=== PATIENT | female | born 1995 ===

== ENCOUNTER 2017-04-18 11:14 | Emergency (ER) | payer OTHER ==
[2017-04-18 11:32] VITALS: BP 107/62
--- NOTE | 2017-04-18 11:41 | UC ---
Throat Pain/Nasal [place] HPI - HPI Summary HPI Summary: complaint of sore throat that started 3 days ago has felt feverish and chills intermittent headaches swollen glands in her neck feels nauseated- denies V/D mild cough to clear her throat denies nasal congestion has been taking ibuprofen with some relief - History of Current Complaint Chief Complaint: UCGeneralIllness Stated Complaint: SORE THROAT,DIZZY Time Seen by Provider: 04/18/17 11:33 Hx Obtained From: Patient Hx Last Menstrual Period: End March 2017 - Allergies/Home Medications Allergies/Adverse Reactions: Allergies Allergy/AdvReac Type Severity Reaction Status Date / Time No Known Allergies Allergy Verified 04/18/17 11:26 Home Medications: Home Medications FLUoxetine CAP* [Prozac CAP*] 10 mg QPM 04/18/17 [History Confirmed 04/18/17] Norgestrel & Ethinyl Estradiol [Cryselle-28 0.3-30 mg-Mcg] 1 tab QPM 04/18/17 [ History Confirmed 04/18/17] PMH/Surg Hx/FS Hx/Imm Hx Previously Healthy: Yes Respiratory History: Asthma - Surgical History Surgical History: None - Family History Known Family History: Negative: Cardiac Disease, Hypertension, Diabetes - Social History Occupation: Employed Full-time Lives: With Family Alcohol Use: Occasionally Substance Use Type: None Smoking Status (MU): Never Smoked Tobacco - Immunization History Most Recent Influenza Vaccination: NONE 2015 Most Recent Tetanus Shot: UTD Most Recent Pneumonia Vaccination: N/A Review of Systems Constitutional: Fever, Chills, Fatigue Skin: Negative Eyes: Negative ENT: Sore Throat Respiratory: Negative Cardiovascular: Negative Gastrointestinal: Negative Genitourinary: Negative Motor: Negative Neurovascular: Negative Musculoskeletal: Negative Neurological: Headache Psychological: Negative All Other Systems Reviewed And Are Negative: Yes Physical Exam Triage Information Reviewed: Yes Appearance: No Pain Distress, Well-Nourished Vital Signs: Initial Vital Signs Temp 98.6 F 04/18/17 11:27 Pulse 70 04/18/17 11:27 Resp 16 04/18/17 11:27 BP 107/62 04/18/17 11:27 Pulse Ox 98 04/18/17 11:27 Vital Signs Reviewed: Yes Eyes: Positive: Conjunctiva Clear ENT: Positive: Pharyngeal erythema, Nasal drainage, TMs normal, Tonsillar swelling, Tonsillar exudate Dental: Positive: Cervical Lymphadenopathy Respiratory: Positive: Lungs clear, Normal breath sounds, No respiratory distress Cardiovascular: Positive: RRR, No Murmur, Pulses Normal, Brisk Capillary Refill Abdomen Description: Positive: Nontender, Soft Bowel Sounds: Positive: Present Musculoskeletal: Positive: No Edema Neurological: Positive: Alert Psychological Exam: Normal Skin Exam: Normal Throat Pain/Nasal Course/Dx - Course Course Of Treatment: exam competed. will treat for tonsiliits, d/t fever enlarged tonsils and lymphadenopathy - Differential Dx/Diagnosis Differential Diagnosis/HQI/PQRI: Pharyngitis, Tonsillitis Provider Diagnoses: tonisilitis Discharge - Discharge Plan Condition: Stable Disposition: HOME Prescriptions: Penicillin VK TAB 500 MG(NF) [Penicillin VK 500 mg Tab(NF)] 500 mg PO BID #20 tab Patient Education Materials: Tonsillitis (ED) Referrals: Reid Chappell [Medical Doctor] - Additional Instructions: TONSILLITIS What is Tonsillitis? Tonsillitis is an infectious condition with symptoms characterized by inflamed tonsils, fever, painful swallowing, sore throat, and a slight voice change. Other symptoms include a white or yellow coating on the tonsils, swollen lymph nodes, headache, and bad breath. Nausea, vomiting, and abdominal pain may occur in younger children. Throat infection (pharyngitis) often occurs along with tonsillitis. Tonsillitis may be caused by either viruses or bacteria, and often the symptoms are the same no matter which germ is causing the infection. Bacterial tonsillitis can be treated with antibiotics, but viral tonsillitis cannot. Sometimes healthcare providers differentiate between the two by taking a throat culture (a painless swab of the back of the throat) or a quick step test and send it to the lab. Eighty-five percent of throat cultures are negative for strep; the majority of infections are caused by a virus. Symptoms Might Include: Mild to severe sore throat and difficulty swallowing Fever Swollen, tender neck glands Headache Muscle and joint pain Loss of appetite Ear ache Breathing through the mouth Nausea or vomiting How Long Will My Symptoms Last? When tonsillitis is caused by Group A streptococci, fever usually stops within 48 hours, and the sore throat disappears soon afterward. With antibiotic treatment, the illness is usually cured within 1 week, but it may take several weeks for the tonsils and swollen glands to return to normal size. When tonsillitis is caused by viruses, the length of illness depends on which virus is involved. Most people are almost completely recovered within 1 week. Contagiousness: All forms of tonsillitis are contagious. Tonsillitis usually spreads from person to person by contact with the throat or nasal fluids of someone who is already infected. Drinking glasses and eating utensils should be kept separate from those of other family members and should be washed with hot soapy water, or washed in the flight simulator teacher. All family members should was their hand frequently. If you have a cough, be sure to cover your mouth when coughing. Place used tissues directly in the garbage can. Revised 2015 Page 2 of 2
== END 2017-04-18 12:11 | disposition home or self-care (01) ==
LOC: UCCORT 11:14
DX: J03.90 Acute tonsillitis, unspecified (principal); J45.909 Unspecified asthma, uncomplicated
CPT/HCPCS: 87651; 99212; G0463

== ENCOUNTER 2017-10-20 10:36 | Emergency (ER) | payer OTHER ==
[2017-10-20 11:08] VITALS: BP 110/61
--- NOTE | 2017-10-20 11:19 | UC ---
Back Pain HPI - HPI Summary HPI Summary: Pain under right shoulder blade constant for about two days. It hurts more to breath and cough. NO sob, anterior pain, numbness. No trauma. - History of Current Complaint Chief Complaint: UCUpperExtremity Stated Complaint: RIGHT SHOULDER COMPLAINT Time Seen by Provider: 10/20/17 11:10 Hx Obtained From: Patient Hx Last Menstrual Period: 3 weeks ago ?: No Onset/Duration: Gradual Onset, Lasting Days Timing: Constant, Lasting Days Severity Initially: Moderate Severity Currently: Moderate Back Pain: Is Discrete @ - right upper back lateral to spine near the shoulder blade. Character: Dull, Aching Aggravating Factor(s): Cough Alleviating Factor(s): OTC Meds Associated Signs And Symptoms: Positive: Negative - Allergies/Home Medications Allergies/Adverse Reactions: Allergies Allergy/AdvReac Type Severity Reaction Status Date / Time No Known Allergies Allergy Verified 10/20/17 11:03 PMH/Surg Hx/FS Hx/Imm Hx Previously Healthy: Yes - Surgical History Surgical History: None - Family History Known Family History: Negative: Cardiac Disease, Hypertension, Diabetes - Social History Alcohol Use: Occasionally Substance Use Type: None Smoking Status (MU): Never Smoked Tobacco - Immunization History Most Recent Influenza Vaccination: no 2016 Most Recent Tetanus Shot: UTD Most Recent Pneumonia Vaccination: N/A Review of Systems Musculoskeletal: Myalgia All Other Systems Reviewed And Are Negative: Yes Physical Exam Triage Information Reviewed: Yes Appearance: Well-Appearing, No Pain Distress, Well-Nourished Vital Signs: Initial Vital Signs Temp 97.7 F 10/20/17 11:03 Pulse 66 10/20/17 11:03 Resp 16 10/20/17 11:03 BP 110/61 10/20/17 11:03 Pulse Ox 100 10/20/17 11:03 Vital Signs Reviewed: Yes Eyes: Positive: Conjunctiva Clear ENT: Positive: Normal ENT inspection Neck: Positive: Supple, Nontender, No Lymphadenopathy. Negative: Nuchal Rigidity Respiratory: Positive: Chest non-tender, Lungs clear, Normal breath sounds, No respiratory distress, No accessory muscle use. Negative: Respiratory distress, Decreased breath sounds, Accessory muscle use, Crackles, Rhonchi, Stridor, Wheezing Cardiovascular: Positive: No Murmur, Pulses Normal, Brisk Capillary Refill Abdomen Description: Positive: No Organomegaly, Soft. Negative: Distended, Guarding Musculoskeletal: Positive: Strength Intact, ROM Intact, No Edema Neurological: Positive: Alert, Muscle Tone Normal. Negative: Fatigued Psychological: Positive: Age Appropriate Behavior Skin: Negative: rashes Back Pain Course/Dx - Differential Dx/Diagnosis Provider Diagnoses: right upper back strain. Muscle strain. Discharge - Discharge Plan Condition: Good Disposition: HOME Prescriptions: Cyclobenzaprine TAB* [Flexeril 10 MG TAB*] 10 mg PO BEDTIME PRN #10 tab PRN Reason: Pain Patient Education Materials: Rib Contusion (ED), Muscle Strain (ED) Referrals: No Primary Care Phys,NOPCP [Primary Care Provider] -
== END 2017-10-20 11:21 | disposition home or self-care (01) ==
LOC: UCCORT 10:36
DX: S29.012A Strain of muscle and tendon of back wall of thorax, initial encounter (principal); X58.XXXA Exposure to other specified factors, initial encounter; Y93.9 Activity, unspecified; Y92.9 Unspecified place or not applicable; Z72.89 Other problems related to lifestyle
CPT/HCPCS: 99212; G0463